=== PATIENT | male | born 1945 | race Caucasian/White ===

== ENCOUNTER → 2021-08-26 10:28 | Outpatient (BNVA) | payer MEDICARE, SELFPAY | PROVIDERS: PCP Family Medicine; Referring Provider Family Medicine; Visit Provider Specialist | DX: G62.9 Polyneuropathy, unspecified (principal); G25.0 Essential tremor | CPT/HCPCS: 99204 ==

== ENCOUNTER → 2021-10-14 13:34 | Outpatient (BNVA) | payer MEDICARE, OTHER, SELFPAY | PROVIDERS: PCP Family Medicine; Referring Provider Specialist; Visit Provider Specialist | DX: G25.0 Essential tremor (principal); G62.89 Other specified polyneuropathies | CPT/HCPCS: 95909; 99213 ==